=== PATIENT | female | born 1955 | race Caucasian/White ===

== ENCOUNTER 2019-01-02 15:26 | Observation (INO) | payer MEDICARE, OTHER ==
[2019-01-02] MEDS ORDERED: HYDROmorphone 0.5 MG/0.5 ML SYRINGE ONE (16:06)
[2019-01-02] MEDS ORDERED: Ondansetron PF 4 MG/2 ML Vial ONE (16:15)
[2019-01-02] MEDS ORDERED: Fentanyl 100 MCG/2 ML VIAL ONE ×2 (17:42→19:38)
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
[2019-01-02] MEDS ORDERED: Ketamine 50 MG/ML (10ML VIAL) ONE (18:46)
--- NOTE | 2019-01-02 19:41 | RAD ---
EXAM: 2 views of the right shoulder HISTORY: Fall with right shoulder pain COMPARISON: None FINDINGS: No degenerative changes are seen. There is a fracture through the right humeral neck. No di slocation is seen. The visualized thorax is unremarkable. IMPRESSION: Right humeral neck fracture
[2019-01-02] MEDS ORDERED: Ondansetron PF 4 MG/2 ML Vial IVP PRN (20:15)
[2019-01-02] MEDS ORDERED: Dextrose 5% in Water 1,000 ML IV PRN (20:15)
[2019-01-02] MEDS ORDERED: Dextrose 50% Abboject 50 ML SYRINGE SLOW IVP PRN (20:15)
[2019-01-02] MEDS ORDERED: hydrALAZINE 20 MG/ML VIAL SLOW IVP PRN (20:15)
[2019-01-02] MEDS ORDERED: Ondansetron ODT 4 MG TAB PO PRN (20:15)
[2019-01-02] MEDS ORDERED: Morphine 4 MG/ML VIAL SLOW IVP PRN (20:15)
[2019-01-02] MEDS ORDERED: traMADol HCl 50 MG TAB PO PRN (20:20)
[2019-01-02] MEDS ORDERED: Cyclobenzaprine 10 MG TAB PO PRN (20:21)
[2019-01-02] MEDS ORDERED: Ketorolac Tromethamine 30 MG/ML VIAL ONE (20:48)
[2019-01-02 21:20] LABS: Hemoglobin 9.9 g/dL (12.0-16.0); Mean Corpuscular HGB CONC 31.9 g/dL (32.0-36.0); Mean Corpuscular Hemoglobin 22.5 pg (27.0-31.0); Mean Corpuscular Volume 70.7 fL (78.0-98.0); Mean Platelet Volume 8.2 fL (7.4-10.4); Platelet Count 347 thou/uL (130-400); RBC Distribution Width 16.7 % (11.5-14.5); Red Blood Cell (RBC) Count 4.41 mill/uL (4.20-5.40); White Blood Cell (WBC) Count 11.5 thou/uL (4.8-10.8)
[2019-01-02] MEDS ORDERED: cloNIDine 0.2 MG TAB PO SCH (21:30)
[2019-01-02 21:35] LABS: #Lymphocytes 1.1 thou/uL (1.20-3.40); #Monocytes 0.7 thou/uL (0.11-0.59); #Neutrophils 9.7 thou/uL (1.40-6.50); %Basophils 0.4 % (0.0-1.0); %Eosinophils 0.2 % (0.0-10.0); %Lymphocytes 9.3 % (21.0-51.0); %Monocytes 5.7 % (0.0-10.0); %Neutrophils 84.4 % (42.0-75.0)
[2019-01-02 21:36] LABS: Elliptocytes SLIGHT = 2-5 cells (100X) (0-1/hpf); MDiff Complete? YES; Microcytosis SLIGHT = 6-15 cells (100X) (0-5/hpf)
[2019-01-02 21:40] VITALS: BMI 27.6
[2019-01-02] MEDS: traMADol HCl 50 MG TAB PO SCH (21:41)
[2019-01-02] MEDS: Gabapentin 300 MG CAP PO SCH (21:41)
[2019-01-02] MEDS: Senokot S 8.6-50 MG TAB PO SCH (21:42)
[2019-01-02] MEDS: Ibuprofen 800 MG TAB PO SCH (21:43)
[2019-01-02 21:47] LABS: ALT (SGPT) 12 U/L (8-55); AST (SGOT) 20 U/L (5-34); Alkaline Phosphatase 101 U/L (40-110); Anion Gap 17 mmol/L (10-20); BUN (Urea Nitrogen) 23 mg/dL (9.8-20.1); Bilirubin, Total 0.3 mg/dL (0.2-1.2); Calc. Creatinine Clearance 78 mL/min (70-130); Calcium 8.8 mg/dL (7.8-10.44); Carbon Dioxide 16 mmol/L (23-31); Chloride 109 mmol/L (98-107); Estimated GFR-MDRD 67; Globulin 3.1 g/dL (2.4-3.5); Glucose 147 mg/dL (80-115); Potassium 3.5 mmol/L (3.5-5.1); Protein, Total 7.1 g/dL (6.0-8.3); Sodium 138 mmol/L (136-145)
[2019-01-02 21:52] LABS: Magnesium 1.7 mg/dL (1.6-2.6)
[2019-01-02 21:58] LABS: Phosphorus 1.9 mg/dL (2.3-4.7)
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
[2019-01-02] MEDS ORDERED: Potassium Phosphate 30 MMOL in Sodium Chloride 0.9% 500 ML IVPB SCH (22:15)
[2019-01-02] MEDS ORDERED: Lactated Ringer's 1,000 ML IV SCH (22:15)
[2019-01-02] MEDS ORDERED: Magnesium 2 GM/50 ML 2 GM in Premix Bag 1 BAG IVPB SCH (22:45)
[2019-01-02] MEDS: Acetaminophen 1,000 MG in Premix Bag 1 BAG IVPB SCH (23:29)
[2019-01-03] MEDS: traMADol HCl 50 MG TAB PO SCH ×2 (02:43→08:54)
[2019-01-03] MEDS: Ibuprofen 800 MG TAB PO SCH (04:51)
[2019-01-03 07:30] LABS: Anion Gap 11 mmol/L (10-20); BUN (Urea Nitrogen) 18 mg/dL (9.8-20.1); Calc. Creatinine Clearance 84 mL/min (70-130); Calcium 8.1 mg/dL (7.8-10.44); Carbon Dioxide 21 mmol/L (23-31); Chloride 108 mmol/L (98-107); Estimated GFR-MDRD 73; Glucose 97 mg/dL (80-115); Potassium 4.3 mmol/L (3.5-5.1); Sodium 136 mmol/L (136-145)
[2019-01-03 07:43] LABS: Magnesium 2.3 mg/dL (1.6-2.6); Phosphorus 5.6 mg/dL (2.3-4.7)
[2019-01-03] MEDS: Senokot S 8.6-50 MG TAB PO SCH (08:51)
[2019-01-03] MEDS: Acetaminophen 1,000 MG in Premix Bag 1 BAG IVPB SCH (08:51)
[2019-01-03] MEDS: Gabapentin 300 MG CAP PO SCH (08:51)
[2019-01-03] MEDS ORDERED: Prevnar 13-Val Conj/PF 0.5 ML SYRINGE IM ONE (09:00)
[2019-01-03] MEDS ORDERED: FLU VACC TS2019-20(65YR UP)/PF 180 MCG/0.5 ML SYRINGE IM ONE (09:00)
[2019-01-03] MEDS ORDERED: cloNIDine 0.2 MG TAB PO SCH (09:00)
[2019-01-03] MEDS ORDERED: Polyethylene Glycol 3350 17 GM Packet PO SCH (09:00)
[2019-01-03] MEDS ORDERED: Acetaminophen 500 MG TAB PO SCH (12:00)
[2019-01-03 12:06] VITALS: BP 92/59; TEMP 97.7
--- NOTE | 2019-01-03 13:44 | DIS ---
DATE OF ADMISSION: 01/02/2019 DATE OF DISCHARGE: 01/03/2019 DISCHARGE DIAGNOSES: 1. Mechanical fall from the back of a truck. 2. Right humeral neck fracture. 3. Acute traumatic pain. DISCHARGE DIAGNOSES: 1. Mechanical fall from the back of a truck. 2. Right humeral neck fracture. 3. Acute traumatic pain. CONSULTING PHYSICIAN: Dr. Irving of Orthopedic Surgery. PROCEDURES: None. HOSPITAL COURSE: The patient is a 63-year-old female who presented to the emergency department as a transfer from [facility] after she fell out of the back of her 's truck. The patient reports hitting her right shoulder on a dumpster. She had a right humeral neck fracture. Initially, there was some concern that the patient had vascular compromise but that was ruled out in the emergency department upon her arrival, and she was seen by the Orthopedic Surgery team who recommended initially non op management, to follow up in clinic in a week for possible operative fixation at that time. There was difficulties in the emergency department with controlling the patient's pain and Trauma was asked to admit the patient for obstipation control. She was admitted to the surgical nursing floor and we achieved good pain control overnight with oral medications. At the time of discharge, the patient's pain was well controlled. She was tolerating a regular diet. She was ambulating without difficulties and voiding without issues. DISCHARGE DISPOSITION: Home. DISCHARGE CONDITION: Satisfactory. PHYSICAL EXAMINATION: VITAL SIGNS: Temperature 97.2, pulse 97, respirations 16, oxygen saturation 97% on room air, blood pressure 122/72. GENERAL: Well-appearing elderly female, sitting up in bed with no signs of acute distress. PULMONARY: Equal chest rise and fall. Clear breath sounds bilaterally. No signs of acute respiratory distress. CARDIAC: Regular rate and rhythm. No murmurs, gallops, or rubs. GASTROINTESTINAL: Soft, nontender, nondistended. EXTREMITIES: 2+ pulses in all extremities. Gross motor and sensation are intact. Right upper extremity with sling that is in place. Fingers are warm and dry. No signs of vascular compromise. DISCHARGE INSTRUCTIONS: The patient will be discharged home. Activity as tolerated. Nonweightbearing right upper extremity in a sling. Regular diet. DISCHARGE MEDICATIONS: Include 1. Tylenol. 2. Flexeril. 3. Gabapentin. 4. Ibuprofen. 5. MiraLAX. 6. Tramadol. 7. Patient's home omeprazole. FOLLOWUP APPOINTMENTS: The patient is to follow up with Dr. Irving in 1 week. There is no need for followup with Trauma Clinic. This is a summary of the patient's hospitalization. For full details, please see her medical record in its entirety. Job ID: [id number]
== END 2019-01-03 11:30 | disposition home or self-care (01) ==
LOC: ERS 15:26 → SURG B 21:22
PROVIDERS: ADMIT Specialist; ATTEND Specialist
DX: S42.221A 2-part displaced fracture of surgical neck of right humerus, initial encounter for closed fracture (principal); G89.11 Acute pain due to trauma; F17.210 Nicotine dependence, cigarettes, uncomplicated; K21.9 Gastro-esophageal reflux disease without esophagitis; I15.8 Other secondary hypertension; E83.39 Other disorders of phosphorus metabolism; Z79.899 Other long term (current) drug therapy; V87.8XXA Person injured in other specified noncollision transport accidents involving motor vehicle (traffic), initial encounter
CPT/HCPCS: 29105; 73030; 80048; 80053; 83735 ×2; 84100 ×2; 85025; 96361 ×2; 96365; 96366; 96367; 96375 ×2; 96376 ×3; 99152; 99285; G0378 ×3; 36415; 96374; G0390; J0131; J0360; J1170; J1885; J2270; J2405; J3010; J3475; J7050

== ENCOUNTER 2019-01-17 08:44 | Observation (INO) | payer MEDICARE, OTHER ==
[2019-01-16 10:03] VITALS: BMI 26.6
[2019-01-17] MEDS ORDERED: Midazolam HCl 2 mg/2 ml Vial ONE (09:58)
[2019-01-17] MEDS ORDERED: Fentanyl 100 MCG/2 ML VIAL ONE ×2 (09:58→13:20)
[2019-01-17] MEDS ORDERED: Ondansetron PF 4 MG/2 ML Vial ONE (10:28)
[2019-01-17] MEDS ORDERED: PHENYLEPHRINE-NS 100 MCG/ML 10 ML SYRINGE ONE (10:28)
[2019-01-17] MEDS ORDERED: Lidocaine 1% PF 5 ML VIAL ONE (10:28)
[2019-01-17] MEDS ORDERED: PROPOFOL 200 MG/20 ML VIAL ONE (10:28)
[2019-01-17] MEDS ORDERED: ePHEDrine/0.9% NaCl/PF SYRINGE 50 mg/10 ml ONE (10:28)
[2019-01-17] MEDS ORDERED: Ropivacaine 0.2% 550 ML 550 ML NERVE BLCK SCH (10:53)
[2019-01-17] MEDS ORDERED: Zolpidem Tartrate 5 MG TAB PO PRN (10:53)
[2019-01-17] MEDS ORDERED: traMADol HCl 50 MG TAB PO PRN ×2 (10:53)
[2019-01-17] MEDS ORDERED: Ondansetron PF 4 MG/2 ML Vial IVP PRN (10:53)
[2019-01-17] MEDS ORDERED: HYDROcodone/Acetaminophen 5/325 mg Tablet PO PRN ×2 (10:53)
[2019-01-17] MEDS ORDERED: Promethazine HCl 25 MG/ML VIAL IM PRN (10:53)
[2019-01-17] MEDS ORDERED: Fentanyl 100 MCG/2 ML VIAL IV PRN (10:54)
[2019-01-17] MEDS ORDERED: Milk Of Magnesia 30 ML UDCUP PO PRN (12:50)
[2019-01-17] MEDS ORDERED: [UNRECOGNIZED DRUG - OTHER] IVPB PRN (12:57)
[2019-01-17] MEDS ORDERED: Communication Order-Pharmacy FS SCH (13:00)
[2019-01-17] MEDS: Ketorolac Tromethamine 30 MG/ML VIAL IVP SCH ×3 (16:40→23:27)
--- NOTE | 2019-01-17 18:06 | RAD ---
XR Humerus Rt 2 View STANDARD History: ORIF Comparison: Shoulder radiograph 01/02/2019 Findings: Satisfactory appearance plate-screw fixation right humeral head/neck fracture. Impression: Satisfactory postoperative appearance.
[2019-01-17] MEDS: CEFAZOLIN 2 GM in Premix Bag 1 BAG IVPB SCH (18:22)
--- NOTE | 2019-01-17 19:37 | OP ---
DATE OF PROCEDURE: 01/17/2019 PROCEDURE PERFORMED: Open reduction and internal fixation of right proximal humerus fracture. PREOPERATIVE DIAGNOSIS: Right displaced proximal humerus fracture. POSTOPERATIVE DIAGNOSIS: Right displaced proximal humerus fracture. COMPLICATIONS: None. ESTIMATED BLOOD LOSS: 200 mL. STORE RECEIVING SPECIALIST: Leny Armas PA-C. IMPLANTS: Synthes proximal humeral plate with multiple locking and nonlocking screws. INDICATIONS FOR PROCEDURE: Ms. Jorge is a 63-year-old female, who has fallen. She fractured the proximal aspect of her humerus with displacement. She was indicated for open reduction and internal fixation to restore anatomic alignment and promote healing. Risks have been reviewed in detail. She elected to proceed with the operation. DESCRIPTION OF PROCEDURE: Ms. Jorge was identified in the preoperative holding area. Her correct extremity was marked. She was carried to the operating room. She was positioned supine. General anesthesia was induced. A multidisciplinary time-out was performed. The right upper extremity was prepped and draped in sterile fashion. We began the procedure with deltopectoral approach to the shoulder. We dissected down through the subcutaneous tissues to the fascia which was opened. We exposed the underlying deltopectoral interval. We then worked more deeply and developed our deep planes elevating the deltoid muscle from the proximal humerus. At this point, we encountered the displaced fracture. We cleared early fibrous tissue and hematoma. We cleared the bony edges. We identified the biceps tendon. We performed a tenotomy and a tenodesis of the biceps tendon. At this point, we freed up the fracture and reduced the fracture back into its anatomic position. We applied K-wires to hold our position. We took x-ray images confirming this. We then applied our proximal humeral plate. Multiple screws were placed in the nonlocking distal portion of the plate followed by multiple locking screws. We took x-ray images confirming that we had an adequate reduction as well as adequate plate placement. We filled the remaining screw holes. We then again took x-ray images. We thoroughly irrigated with copious lavage. We then closed with 0 Vicryl suture, 2-0 Vicryl suture, and caroline for the skin. A sterile dressing was applied. The patient was taken to the recovery room at this point in good condition. Job ID: [id number]
[2019-01-17] MEDS: HYDROcodone/Acetaminophen 10/325 mg Tablet PO PRN (21:44)
[2019-01-18] MEDS: CEFAZOLIN 2 GM in Premix Bag 1 BAG IVPB SCH (01:39)
[2019-01-18] MEDS: HYDROcodone/Acetaminophen 10/325 mg Tablet PO PRN ×2 (01:43→05:39)
[2019-01-18] MEDS: Ketorolac Tromethamine 30 MG/ML VIAL IVP SCH (05:35)
[2019-01-18 06:33] LABS: #Basophils 0.1 thou/uL (0.0-0.2); #Eosinphils 0.3 thou/uL (0.0-0.7); #Lymphocytes 1.8 thou/uL (1.20-3.40); #Monocytes 0.6 thou/uL (0.11-0.59); #Neutrophils 4.2 thou/uL (1.40-6.50); %Basophils 0.9 % (0.0-1.0); %Eosinophils 4.1 % (0.0-10.0); %Lymphocytes 26.3 % (21.0-51.0); %Monocytes 8.7 % (0.0-10.0); %Neutrophils 59.9 % (42.0-75.0); Hemoglobin 7.7 g/dL (12.0-16.0); Mean Corpuscular HGB CONC 32.1 g/dL (32.0-36.0); Mean Corpuscular Hemoglobin 23.5 pg (27.0-31.0); Mean Corpuscular Volume 73.2 fL (78.0-98.0); Mean Platelet Volume 7.5 fL (7.4-10.4); Platelet Count 385 thou/uL (130-400); Red Blood Cell (RBC) Count 3.27 mill/uL (4.20-5.40); White Blood Cell (WBC) Count 6.9 thou/uL (4.8-10.8)
[2019-01-18 08:42] VITALS: BP 149/78; TEMP 98
--- NOTE | 2019-01-19 14:26 | EKG ---
Test Reason : PREOP Blood Pressure : / mmHG Vent. Rate : 079 BPM Atrial Rate : 079 BPM P-R Int : 134 ms QRS Dur : 074 ms QT Int : 368 ms P-R-T Axes : 029 012 049 degrees QTc Int : 421 ms Normal sinus rhythm Normal ECG No previous ECGs available Confirmed by CRAIG TIMMONS (2) on 01/19/2019 2:25:49 PM Referred By: JAN Confirmed By:CRAIG TIMMONS
== END 2019-01-18 09:36 | disposition home or self-care (01) ==
LOC: SDC 08:44 → SURG A 14:47
PROVIDERS: ADMIT Orthopaedic Surgery; ATTEND Orthopaedic Surgery
PROC: 0PSC04Z Reposition Right Humeral Head with Internal Fixation Device, Open Approach (ICD-10-PCS; principal; 2019-01-17)
PROC: 3E0T3BZ Introduction of Anesthetic Agent into Peripheral Nerves and Plexi, Percutaneous Approach (ICD-10-PCS; 2019-01-17)
DX: S42.201A Unspecified fracture of upper end of right humerus, initial encounter for closed fracture (principal); G89.18 Other acute postprocedural pain; F17.200 Nicotine dependence, unspecified, uncomplicated; Z79.899 Other long term (current) drug therapy; V89.9XXA Person injured in unspecified vehicle accident, initial encounter
CPT/HCPCS: 23615; 64416; 73060; 76000; 85025; 93005; 96365; 96375; 96376 ×2; 97139; A4306; C1713 ×3; G0378 ×2; 36415; 93010; J0690; J1885; J2001; J2250; J2405; J2704; J2795; J3010

== ENCOUNTER 2019-08-06 08:32 | Outpatient (CLI) | payer MEDICARE, OTHER ==
--- NOTE | 2019-08-07 07:50 | MRI ---
RIGHT BRACHIAL PLEXUS MRI: HISTORY: Injury to the right median nerve. Patient fell and broke her right arm in December 2018. Right should er pain radiating down her right arm with limited range of motion in the right hand. COMPARISON: None. TECHNIQUE: A right brachial plexus MRI is warm with and without contrast. Multisequential, multiplanar imaging i s performed. FINDINGS: Visualized brain parenchyma and spinal cord have an appropriate signal intensity. Visualized soft tis ratna structures have appropriate signal intensity. Limited evaluation of the right shoulder due to metallic susceptibility artifact. Evaluation of the right brachial plexus is limited. No obvious signal abnormality in the expected reg ion of the right brachial plexus. Fat signal intensity is maintained. There is no abnormal enhancement. There is no evidence of abnormal edema to suggest ligamentous injury. IMPRESSION: No obvious abnormality with regards to the visualized right brachial plexus. Transcribed Date/Time: 08/07/2019 8:09 AM
== END 2019-08-06 08:33 | disposition home or self-care (01) ==
LOC: BICMRI 08:32
PROVIDERS: ATTEND Orthopaedic Surgery Hand Surgery
DX: S14.3XXA Injury of brachial plexus, initial encounter (principal); G90.50 Complex regional pain syndrome I, unspecified; S54.11XA Injury of median nerve at forearm level, right arm, initial encounter
CPT/HCPCS: 82565